=== PATIENT | male | born 1950 | race Caucasian/White ===

== ENCOUNTER 2022-02-16 03:11 | Emergency (ER) | payer MEDICARE, OTHER ==
[2022-02-16] MEDS ORDERED: Nitroglycerin 0.4 MG Tab.SL SL PRN (03:22)
[2022-02-16] MEDS: Aspirin 81 MG Tab.Chew PO ONE ×2 (03:27→03:29)
[2022-02-16 03:59] LABS: BLOOD UREA NITROGEN,BUN 25 mg/dL (7.0-18.0); CARBON DIOXIDE,CO2 24.3 mmol/L (21.0-32.0); CHLORIDE,CL 103 mmol/L (98-107); GLUCOSE RANDOM 94 mg/dL (74-106); POTASSIUM,K 4.1 mmol/L (3.5-5.1); SODIUM,NA 137 mmol/L (136-148)
[2022-02-16] MEDS ORDERED: Acetaminophen 500 MG Tab PO ONE (06:34)
[2022-02-16 06:48] VITALS: BP 141/81; PULSE 62
== END 2022-02-16 07:04 | disposition home or self-care (01) ==
LOC: MW.ED 03:11
DX: R07.89 Other chest pain (principal); I25.10 Atherosclerotic heart disease of native coronary artery without angina pectoris; E78.00 Pure hypercholesterolemia, unspecified; I10 Essential (primary) hypertension; Z91.048 Other nonmedicinal substance allergy status; Z79.82 Long term (current) use of aspirin; Z79.899 Other long term (current) drug therapy
CPT/HCPCS: 36415; 71045; 80053; 84484; 85025; 93005; 99285; A9270

== ENCOUNTER 2022-02-21 14:12 | Observation (INO) | payer MEDICARE, OTHER ==
[2022-02-21] MEDS ORDERED: Sodium Chloride 0.9% 10 ML Syringe FLUSH PRN (14:32)
[2022-02-21] MEDS ORDERED: Sodium Chloride 0.9% 2.5 ML Syringe FLUSH PRN (14:32)
[2022-02-21] MEDS ORDERED: Iopamidol 755 MG/ML 500 ML Multipack Bottle IVPUSH ONE (15:29)
[2022-02-21 15:33] LABS: BLOOD UREA NITROGEN,BUN 20 mg/dL (7.0-18.0); CARBON DIOXIDE,CO2 28.5 mmol/L (21.0-32.0); CHLORIDE,CL 105 mmol/L (98-107); GLUCOSE RANDOM 89 mg/dL (74-106); POTASSIUM,K 3.9 mmol/L (3.5-5.1); SODIUM,NA 141 mmol/L (136-148)
[2022-02-21] MEDS ORDERED: Aspirin 81 MG Tab.Chew PO ONE (18:14)
[2022-02-21] MEDS ORDERED: Nitroglycerin 0.2 MG/HR Transdermal Patch TRDERM ONE (18:14)
[2022-02-21] MEDS ORDERED: Aspirin 81 MG Tab.Chew ONE (18:45)
[2022-02-21] MEDS ORDERED: Nitroglycerin 2% Oint 1 GM UD Packet ONE (18:46)
[2022-02-21] MEDS ORDERED: Nitroglycerin 2% Oint 1 GM UD Packet TOP ONE (18:58)
[2022-02-21] MEDS ORDERED: Albuterol/Ipratropium 3.0-0.5 MG/3 ML Neb Soln NEB PRN (19:30)
[2022-02-21] MEDS ORDERED: Simvastatin 20 MG Tab PO SCH (21:00)
[2022-02-21] MEDS: Aspirin 81 MG Tab.EC PO SCH (21:08)
[2022-02-21] MEDS: Acetaminophen 325 MG Tab PO PRN (23:09)
[2022-02-22] MEDS: Acetaminophen 325 MG Tab PO PRN ×2 (04:01→08:30)
[2022-02-22] MEDS: Aspirin 81 MG Tab.EC PO SCH (08:34)
[2022-02-22] MEDS ORDERED: Lisinopril 10 MG Tab PO SCH (09:00)
[2022-02-22] MEDS ORDERED: Atenolol 25 MG Tab PO SCH (09:00)
[2022-02-22] MEDS ORDERED: Lisinopril 10 MG Tab PO ONE (10:57)
[2022-02-22] MEDS ORDERED: Isosorbide Mononitrate 30 MG Tab.ER PO SCH (11:30)
[2022-02-22 12:10] VITALS: BP 171/89
[2022-02-22 12:11] VITALS: PULSE 54
[2022-02-23] MEDS ORDERED: Lisinopril 10 MG Tab PO SCH (09:00)
== END 2022-02-22 13:40 | disposition home or self-care (01) ==
LOC: MW.ED 14:12 → MW.MS 18:03
PROVIDERS: ADMIT Student in an Organized Health Care Education/Training Program; ATTEND Student in an Organized Health Care Education/Training Program
DX: R07.89 Other chest pain (principal); E78.00 Pure hypercholesterolemia, unspecified; I10 Essential (primary) hypertension; G43.909 Migraine, unspecified, not intractable, without status migrainosus; M19.90 Unspecified osteoarthritis, unspecified site; Z91.048 Other nonmedicinal substance allergy status; Z79.82 Long term (current) use of aspirin; Z79.899 Other long term (current) drug therapy; Z20.822 Contact with and (suspected) exposure to COVID-19
CPT/HCPCS: 36415; 71275; 80053; 83735; 83880; 84484; 85025; 85379; 85610; 93005; 99285; A9270; G0378; J3490; Q9967; U0002